=== PATIENT | male | born 1990 | race Caucasian/White ===

== ENCOUNTER 2017-02-12 16:12 | Emergency (ER) | payer BC, OTHER ==
[2017-02-12 16:24] VITALS: BP 123/69; PULSE 73; RESP 16; TEMP 99.1; O2SAT 95
[2017-02-12] MEDS ORDERED: PROPARACAINE 0.5% 15 ML OPHT DROP OP ONE (16:24)
--- NOTE | 2017-02-12 17:52 | UCPHY ---
H & P Time Seen by Provider: 02/12/17 16:36 Patient Type: Established HPI/ROS: HPI Right eye irritation. 26-year-old male. Contact lens wear. Reports that he woke up this morning with pain, irritation and tearing to his right eye. No history of ocular foreign body or ocular trauma. He does wear contact lenses. He left his contact lenses in overnight. He removed his right contact lens this morning. There is no relief in his discomfort. He has had no changes in his vision. No discharge. ROS: Constitutional: No fever, no chills. No weakness. Eyes: No discharge. No changes in vision. ENT: No sore throat. No nasal congestion or rhinorrhea. Respiratory: No cough. No shortness of breath. Cardiac: No chest pain, no palpitations. Gastrointestinal: No abdominal pain, no vomiting, no diarrhea. Genitourinary: No hematuria. No dysuria or increased frequency with urination. Musculoskeletal: No back pain. No neck pain. No myalgias or arthralgias. Skin: No rashes. Neurological: No headache. No focal weakness or altered sensation. Past medical history: Includes attention deficit hyperactivity disorder, anxiety, kidney stones. Social history: Every day smoker. No alcohol. Physical Exam: General Appearance: Alert, no distress. This patient is responding to questions appropriately and in full sentences. This patient appears well- hydrated and well-nourished. Eyes: Right eye exam; diffuse conjunctival inflammation and scleral inflammation. No lid edema. No purulent discharge.. Right eye-Huffman lamp exam with fluorescein staining; no Vika's sign, 2 small and subtle areas of corneal abrasion less than half a mm in diameter at the 10 o'clock and 9 o' clock position mid cornea, no ulceration or other abnormality. Slit-lamp exam; no hypopyon, no hyphema, anterior chamber is deep and clear, no cell/flare. The upper and lower lids were everted with no gross evidence of foreign body. Neurological: Motor sensory function is grossly intact. Cranial nerves are normal. Gait is normal. Skin: Warm and dry, no rashes. Extremities are symmetrical. All joints range without pain or impingement. Psychiatric: No agitation. No depression. Database: EKG: Imaging: Procedures: Emergency department course: Patient treated with ofloxacin ophthalmic drops in the emergency department. He was given 600 mg of ibuprofen. Plan will be to send him home with ofloxacin drops, instructions for high-dose ibuprofen and a take-home pack of Vicodin for treatment of corneal abrasion. He has been instructed not to use contact lenses in his right eye. He will follow up with Dr. Liborio Gil or 1 of his partners with the ophthalmology service at [facility] on Tuesday in their office for re-evaluation. Return to Urgent Care/emergency department precautions reviewed with him in detail. All of his questions were answered. He was discharged in good condition. Differential Diagnosis: The differential diagnosis on this patient includes but is not limited to corneal abrasion, conjunctivitis. Corneal ulceration, iritis, uveitis, corneal foreign body, ocular trauma unlikely. This represents a partial list of diagnoses considered. These considerations are based on history, physical exam , past history, reassessment and diagnostic testing. Smoking Status: Current every day smoker Constitutional: Initial Vital Signs Temperature (C) 37.3 C 02/12/17 16:21 Heart Rate 73 02/12/17 16:21 Respiratory Rate 16 02/12/17 16:21 Blood Pressure 123/69 H 02/12/17 16:21 O2 Sat (%) 95 02/12/17 16:21 O2 Delivery Mode Room Air Allergies/Adverse Reactions: No Known Allergies Allergy (Verified 02/12/17 16:23) Home Medications: Medication Instructions Recorded Adderall 10 mg Tablet 02/12/17 Medical Decision Making - Data Points Medications Given: Discontinued Medications Proparacaine HCl (Alcaine 0.5%) 2 drops OP EDNOW ONE Stop: 02/12/17 16:25 Last Admin: 02/12/17 16:33 Dose: 2 drops Departure - Departure Disposition: Home, Routine, Self-Care Clinical Impression: Corneal abrasion, Conjunctivitis Condition: Good Instructions: Corneal Abrasion (ED), Conjunctivitis (ED) Additional Instructions: Read and follow provided instructions. Follow-up with Dr. Liborio Gil of the ophthalmology service at [facility] on Tuesday for re-evaluation. Call his office 8:30 a.m., Tuesday morning for appointment time. Explain this is for an emergency department follow-up. Ofloxacin ophthalmic drops: 1-2 drops to right eye every 2-4 hours while awake for the 1st 2 days, then 1-2 drops every 6 hours for an additional 5 days. Ibuprofen dosin mg every 6 hours with meals for the next 3 days only. [place]/Percocet dosin-2 every 4-[address] for [address] not drive on this medication. Return to the emergency department for worsening pain, swelling, changes in vision, headache or other serious concerns. Referrals: Liborio Gil MD [Medical Doctor] - As per Instructions - PQRS PQRS Measurement: Not applicable.
[2017-02-12] MEDS ORDERED: FLUORESCEIN SODIUM 1 MG STRIP OP ONE (17:58)
[2017-02-12] MEDS ORDERED: OFLOXACIN 0.3% SOLN PREPACK OPHT.BTL TAKEHOME ONE (18:06)
[2017-02-12] MEDS ORDERED: OFLOXACIN 0.3% 5ML OPHT DROPS RTEYE ONE (18:06)
[2017-02-12] MEDS ORDERED: HYDROCOD/APAP 5/325 PREPACK#6 BTL TAKEHOME ONE (18:13)
[2017-02-12] MEDS ORDERED: IBUPROFEN 800 MG TAB PO ONE (18:15)
[2017-02-12] MEDS ORDERED: IBUPROFEN 200 MG TAB PO ONE (18:25)
== END 2017-02-12 18:25 | disposition home or self-care (01) ==
LOC: CED 16:12
PROC: 08J0XZZ Inspection of Right Eye, External Approach (ICD-10-PCS; principal; 2017-02-12)
DX: S05.01XA Injury of conjunctiva and corneal abrasion without foreign body, right eye, initial encounter (principal); H10.9 Unspecified conjunctivitis; Z72.0 Tobacco use
CPT/HCPCS: 99214-PO; G0463-PO